=== PATIENT | male | born 1975 | race Caucasian/White ===

== ENCOUNTER 2016-06-19 20:40 | Emergency (ER) | payer SELFPAY ==
[~2016-06-19] VITALS: Ht 188 cm; Wt 105.0 kg
[2016-06-19 20:52] VITALS: BP 143/67; PULSE 110; RESP 20; TEMP 98; O2SAT 98
[2016-06-19 20:56] VITALS: BP 140/68; PULSE 98; RESP 20; O2SAT 98
--- NOTE | 2016-06-19 21:15 | PD ---
HPI Chief Complaint: Alcohol/Drug Intoxication Time Seen by Provider: 21:09 Travel History International Travel<30 days: No Contact w/Intl Traveler<30days: No Traveled to known affect area: No History of Present Illness HPI The patient is a 41-year-old male who presents to the emergency department via police as a Lu ask. According to the affidavit the patient was found intoxicated. The patient admits to drinking alcohol earlier today down near the. The patient states he is originally from [place], [place]. The patient states he got to the local area via boat, states he plans on traveling south. The patient does admitted currently being homeless. He denies any current physical complaints. He denies any illicit drug use, suicidal ideation, homicidal ideation, hallucinations, or delusions. He denies any chest pain, short of breath, nausea, vomiting, or abdominal pain. PFSH Past Medical History Medical History: Denies Significant Hx Immunizations Current: Yes Tetanus Vaccination: Unknown Influenza Vaccination: No Past Surgical History Other Surgery: Yes (collar bone surgery) Social History Alcohol Use: Yes Tobacco Use: Yes Substance Use: No Allergies-Medications (Allergen,Severity, Reaction): Coded Allergies: No Known Allergies (Unverified , 06/19/16) Reported Meds & Prescriptions Reported Meds & Active Scripts Active No Active Prescriptions or Reported Medications Review of Systems Except as stated in HPI: all other systems reviewed are Neg Psychiatric: Positive: Substance Abuse (alcohol intake today) Physical Exam Narrative GENERAL: Awake, alert, 41-year-old male appears his stated age and appears intoxicated. SKIN: Sunburn over the face. HEAD: Atraumatic. Normocephalic. EYES: Pupils equal and round. No scleral icterus. No injection or drainage. ENT: No nasal bleeding or discharge. Breath smells of alcohol. NECK: Trachea midline. No JVD. CARDIOVASCULAR: Regular rate and rhythm. No murmur appreciated. RESPIRATORY: No accessory muscle use. Clear to auscultation. Breath sounds equal bilaterally. GASTROINTESTINAL: Abdomen soft, non-tender, nondistended. MUSCULOSKELETAL: No obvious deformities. No clubbing. No cyanosis. No edema. NEUROLOGICAL: Awake and alert. No obvious cranial nerve deficits. Motor grossly within normal limits. Normal speech. Oriented to person, place, and year. PSYCHIATRIC: Appears intoxicated. Data Data Last Documented VS Vital Signs Date Time Temp Pulse Resp B/P Pulse Ox O2 Delivery O2 Flow Rate FiO2 06/19/16 20:56 98 20 140/68 98 Room Air 06/19/16 20:52 98.0 Orders Basic Metabolic Panel (Bmp) (06/19/16 21:11) Alcohol (Ethanol) (06/19/16 21:11) Labs Laboratory Tests Test 06/19/16 21:30 Sodium Level 140 MEQ/L Potassium Level 3.2 MEQ/L Chloride Level 102 MEQ/L Carbon Dioxide Level 27.3 MEQ/L Anion Gap 11 MEQ/L Blood Urea Nitrogen 8 MG/DL Creatinine 0.96 MG/DL Estimat Glomerular Filtration 87 ML/MIN Rate Random Glucose 88 MG/DL Calcium Level 7.9 MG/DL Ethyl Alcohol Level 331 MG/DL [facility] Medical Decision Making Medical Screen Exam Complete: Yes Emergency Medical Condition: Yes Medical Record Reviewed: Yes Interpretation(s) Laboratory Tests Test 06/19/16 21:30 Sodium Level 140 MEQ/L Potassium Level 3.2 MEQ/L Chloride Level 102 MEQ/L Carbon Dioxide Level 27.3 MEQ/L Anion Gap 11 MEQ/L Blood Urea Nitrogen 8 MG/DL Creatinine 0.96 MG/DL Estimat Glomerular Filtration 87 ML/MIN Rate Random Glucose 88 MG/DL Calcium Level 7.9 MG/DL Ethyl Alcohol Level 331 MG/DL Differential Diagnosis Differential diagnosis includes alcohol intoxication, substance ingestion, hyponatremia. Narrative Course BMP and alcohol level were sent to lab. BMP reveals potassium 3.2, therefore, was replaced orally. Alcohol level was elevated at 331. Patient will be allowed to sleep it off and wheezy would ambulate and has a safe disposition home, patient will be discharged. Diagnosis Primary Impression: Alcohol intoxication Qualified Code: F10.120 - Alcohol intoxication, uncomplicated Additional Impression: Hypokalemia Scripts No Active Prescriptions or Reported Meds Condition: Stable Brian Rapp MD Jun 19, 2016 21:15
[2016-06-19 22:09] LABS: BICARBONATE 27.3 MEQ/L (21.0-32.0); POTASSIUM 3.2 MEQ/L (3.5-5.1)
[2016-06-19] MEDS ORDERED: POTASSIUM CHLORIDE 20 MEQ CONTROLLED RELEASE TAB PO ONE (22:30)
== END 2016-06-20 05:39 | disposition home or self-care (01) ==
LOC: NEPA 20:40
DX: F10.129 Alcohol abuse with intoxication, unspecified (principal); E87.6 Hypokalemia; Y90.8 Blood alcohol level of 240 mg/100 ml or more; Z72.0 Tobacco use; Z59.0 Homelessness
CPT/HCPCS: 80048; 80307; 99284

== ENCOUNTER 2016-08-29 19:51 | Emergency (ER) | payer SELFPAY ==
[2016-08-29 19:53] VITALS: BP 146/86; PULSE 103; RESP 15; TEMP 98.5; O2SAT 97
--- NOTE | 2016-08-29 20:42 | PD ---
HPI Chief Complaint: Medical Clearance Time Seen by Provider: 20:42 Travel History International Travel<30 days: No Contact w/Intl Traveler<30days: No Traveled to known affect area: No History of Present Illness HPI 41-year-old male came to the emergency room for alcohol detox. Patient says he is a binge drinker and has been binging for past 2 months straight. He is drinking more than a gallon of vodka every day. However now he feels like he needs to get rehabilitation and needs help. His last drink was 2:30 AM. He says he is starting to feel some withdrawal currently. No history of vomiting or diarrhea. Denies doing any drugs except smoking marijuana occasionally. He thinks he has history of hepatitis C as well. He tried going to [facility] but he was told that there are no beds currently. They have asked him to come back tomorrow at 8 AM. Patient says he has had left upper quadrant pain for many years now and not sure what it is from. [facility] Past Medical History Narrative Medical List of his past medical, surgical, social and family history is reviewed from the nursing note. Anxiety: Yes Immunizations Current: Yes Tetanus Vaccination: > 5 Years Past Surgical History Other Surgery: Yes (collar bone surgery) Social History Alcohol Use: Yes (last drink was last night ) Tobacco Use: Yes Substance Use: Yes (mj ) Allergies-Medications (Allergen,Severity, Reaction): Coded Allergies: No Known Allergies (Unverified , 08/29/16) Comments No known drug allergies. Reported Meds & Prescriptions Reported Meds & Active Scripts Active No Active Prescriptions or Reported Medications Narrative Medication List of his home medications reviewed from the nursing note. Review of Systems Except as stated in HPI: all other systems reviewed are Neg Physical Exam Narrative GENERAL: Awake, alert, mild distress SKIN: Focused skin assessment warm/dry. Disheveled HEAD: Atraumatic. Normocephalic. EYES: Pupils equal and round. No scleral icterus. No injection or drainage. ENT: No nasal bleeding or discharge. Mucous membranes pink and moist. NECK: Trachea midline. No JVD. CARDIOVASCULAR: Regular rate and rhythm. No murmur appreciated. RESPIRATORY: No accessory muscle use. Clear to auscultation. Breath sounds equal bilaterally. GASTROINTESTINAL: Abdomen soft, left upper quadrant tenderness on deep palpation , nondistended. Hepatic and splenic margins not palpable. MUSCULOSKELETAL: No obvious deformities. No clubbing. No cyanosis. No edema. NEUROLOGICAL: Awake and alert. No obvious cranial nerve deficits. Motor grossly within normal limits. Normal speech. PSYCHIATRIC: Appropriate mood and affect; insight and judgment normal. Data Data Last Documented VS Vital Signs Date Time Temp Pulse Resp B/P Pulse Ox O2 Delivery O2 Flow Rate FiO2 08/29/16 22:55 87 16 150/81 98 08/29/16 19:53 98.5 Room Air Orders Complete Blood Count With Diff (08/29/16 21:06) Comprehensive Metabolic Panel (08/29/16 21:06) Iv Access Insert/Monitor (08/29/16 21:06) Ecg Monitoring (08/29/16 21:06) Oximetry (08/29/16 21:06) Sodium Chlor 0.9% 1000 Ml Inj (Ns 1000 M (08/29/16 21:06) Sodium Chloride 0.9% Flush (Ns Flush) (08/29/16 21:15) Alcohol (Ethanol) (08/29/16 21:06) Chlordiazepoxide (Librium) (08/29/16 21:15) Thiamine (Vit B1) (Vitamin B1) (08/29/16 22:30) Labs Laboratory Tests Test 08/29/16 21:20 White Blood Count 7.8 TH/MM3 Red Blood Count 4.03 MIL/MM3 Hemoglobin 13.0 GM/DL Hematocrit 38.0 % Mean Corpuscular Volume 94.3 FL Mean Corpuscular Hemoglobin 32.4 PG Mean Corpuscular Hemoglobin 34.3 % Concent Red Cell Distribution Width 13.8 % Platelet Count 217 TH/MM3 Mean Platelet Volume 7.2 FL Neutrophils (%) (Auto) 78.5 % Lymphocytes (%) (Auto) 12.2 % Monocytes (%) (Auto) 6.8 % Eosinophils (%) (Auto) 2.0 % Basophils (%) (Auto) 0.5 % Neutrophils # (Auto) 6.1 TH/MM3 Lymphocytes # (Auto) 1.0 TH/MM3 Monocytes # (Auto) 0.5 TH/MM3 Eosinophils # (Auto) 0.2 TH/MM3 Basophils # (Auto) 0.0 TH/MM3 CBC Comment DIFF FINAL Differential Comment Sodium Level 135 MEQ/L Potassium Level 3.6 MEQ/L Chloride Level 100 MEQ/L Carbon Dioxide Level 26.6 MEQ/L Anion Gap 8 MEQ/L Blood Urea Nitrogen 8 MG/DL Creatinine 0.78 MG/DL Estimat Glomerular Filtration 110 ML/MIN Rate Random Glucose 73 MG/DL Calcium Level 8.3 MG/DL Total Bilirubin 1.4 MG/DL Aspartate Amino Transf 49 U/L (AST/SGOT) Alanine Aminotransferase 31 U/L (ALT/SGPT) Alkaline Phosphatase 96 U/L Total Protein 7.1 GM/DL Albumin 3.7 GM/DL Ethyl Alcohol Level LESS THAN 3 MG/DL MDM Medical Decision Making Medical Screen Exam Complete: Yes Emergency Medical Condition: Yes Medical Record Reviewed: Yes Differential Diagnosis Chronic alcoholism, alcohol dependence Narrative Course 10:13 PM awaiting for the blood test results to come back. Patient was given 10 mg of by mouth Librium to prevent withdrawal. If test results are within acceptable limits patient will be discharged that he can go back in the morning to [facility]. He understands this plan. 10:31 PM blood test results are back. His sugar is borderline and I have ordered some food for this patient. Also patient will get thiamine. After which he will be discharged. Procedures EKG Prior to Arrival: No Diagnosis Primary Impression: Chronic alcoholism Additional Impressions: Alcohol consumption binge drinking Alcohol dependence Qualified Code: F10.29 - Alcohol dependence with unspecified alcohol-induced disorder Referrals: Primary Care Physician 2 days Additional Instructions: Please go to [facility] tomorrow morning and see if they can check you in and for detox. In to the ER if the condition worsens or any other new concerns. Med/Other Pt SpecificInfo: No Change to Meds Scripts No Active Prescriptions or Reported Meds Disposition: 01 DISCHARGE HOME Condition: Stable Edmund Gu MD August 29, 2016 20:42
[2016-08-29] MEDS ORDERED: SODIUM CHLOR 0.9% 1000 ML INJ 1,000 ML IV SCH (21:06)
[2016-08-29] MEDS ORDERED: SODIUM CHLORIDE 0.9% FLUSH 10 ML FLUSH IV FLUSH PRN (21:15)
[2016-08-29 21:53] LABS: AUTOMATED NEUTROPHIL # 6.1 TH/MM3 (1.8-7.7); BASOPHIL % 0.5 % (0.0-2.0); EOSINOPHIL # 0.2 TH/MM3 (0-0.4); HEMO FLAGS DIFF FINAL; LYMPH % 12.2 % (9.0-44.0); MEAN CELL VOLUME 94.3 FL (80.0-100.0); MEAN CORPUSCULAR HEMOGLOBIN 32.4 PG (27.0-34.0); MEAN CORPUSCULAR HGB CONC 34.3 % (32.0-36.0); MONO % 6.8 % (0.0-8.0); NEUT % 78.5 % (16.0-70.0); PLATELET COUNT 217 TH/MM3 (150-450); RED BLOOD COUNT 4.03 MIL/MM3 (4.50-5.90); RED CELL DISTRIBUTION WIDTH 13.8 % (11.6-17.2); WHITE BLOOD COUNT 7.8 TH/MM3 (4.0-11.0)
[2016-08-29 22:08] LABS: ALT (GPT) 31 U/L (12-78); ANION GAP 8 MEQ/L (5-15); AST (GOT) 49 U/L (15-37); BICARBONATE 26.6 MEQ/L (21.0-32.0); BLOOD UREA NITROGEN 8 MG/DL (7-18); CHLORIDE 100 MEQ/L (98-107); GLOMERULAR FILTRATION RATE 110 ML/MIN (>89); POTASSIUM 3.6 MEQ/L (3.5-5.1); SODIUM (NA) 135 MEQ/L (136-145)
[2016-08-29 22:11] LABS: ALKALINE PHOSPHATASE 96 U/L (45-117); TOTAL BILIRUBIN ADULT 1.4 MG/DL (0.2-1.0)
[2016-08-29] MEDS ORDERED: THIAMINE HCL 100 MG TAB PO ONE (22:30)
[2016-08-29 22:55] VITALS: BP 150/81
== END 2016-08-29 23:00 | disposition home or self-care (01) ==
LOC: NEPE 19:51
DX: F10.20 Alcohol dependence, uncomplicated (principal); Z72.0 Tobacco use; F12.10 Cannabis abuse, uncomplicated
CPT/HCPCS: 80053; 80307; 85025; 99283; J7030